=== PATIENT | female | born 2000 | race Caucasian/White ===

== ENCOUNTER 2024-04-19 16:14 | Emergency (ER) | payer SELFPAY ==
[~2024-04-19] VITALS: Ht 162.6 cm; Wt 58.6 kg
[2024-04-19 16:23] VITALS: TEMP 97.9
[2024-04-19] MEDS ORDERED: Ketorolac 15 MG/ML VIAL IM ONE (19:15)
[2024-04-19] MEDS ORDERED: VOLTAREN 75 DR75 MG PO (20:09)
[2024-04-19] MEDS ORDERED: FLEXERIL 1010 MG/TAB PO (20:09)
[2024-04-19 20:40] VITALS: BP 110/72; PULSE 66
== END 2024-04-19 20:40 | disposition home or self-care (01) ==
LOC: COL.ER 16:14
DX: S16.1XXA Strain of muscle, fascia and tendon at neck level, initial encounter (principal); G43.909 Migraine, unspecified, not intractable, without status migrainosus; V89.2XXA Person injured in unspecified motor-vehicle accident, traffic, initial encounter; Y92.410 Unspecified street and highway as the place of occurrence of the external cause
CPT/HCPCS: J1885